=== PATIENT | female | born 1990 | race Caucasian/White ===

== ENCOUNTER 2017-07-06 15:53 | Emergency (ER) | payer MEDICAID, MEDICARE ==
[~2017-07-06] VITALS: Ht 170.2 cm; Wt 109.0 kg
[2017-07-06] MEDS ORDERED: NO HOME MEDICATIONS (16:11)
[2017-07-06 17:30] LABS: CLARITY URINE CLEAR (CLEAR); COLOR URINE YELLOW (YELLOW); GLUCOSE URINE NEGATIVE (NEGATIVE); KETONES URINE NEGATIVE (NEGATIVE); LEUKOCYTE ESTERASE URINE NEGATIVE (NEGATIVE); NITRITE URINE NEGATIVE (NEGATIVE); OCCULT BLOOD URINE NEGATIVE (NEGATIVE); PH URINE 6.5 (4.5-8.0); PROTEIN URINE NEGATIVE (NEGATIVE); SPECIFIC GRAVITY URINE 1.006 (1.005-1.030); UROBILINOGEN URINE 0.2 E.U./dL (0.2-1.0)
[2017-07-06] MEDS ORDERED: ONDANSETRON HCL 4MG/2ML VIAL IV STA (18:06)
[2017-07-06] MEDS ORDERED: SODIUM CHLORIDE 0.9% 1,000 ML IV ONE (18:06)
[2017-07-06] MEDS ORDERED: MORPHINE SULFATE 4 MG/ML CPJ (NOT FOR IM USE) IV STA (18:06)
[2017-07-06] MEDS ORDERED: PANTOPRAZOLE SODIUM 40 MG/VIAL IV STA (18:06)
[2017-07-06 18:34] LABS: BASOPHILS % 0.7 % (0.0-2.0); EOSINOPHILS % 1.4 % (0.0-5.0); HEMATOCRIT. 37.5 % (36.0-48.0); HEMOGLOBIN. 12.6 g/dL (12.0-16.0); LYMPHOCYTES % 32.6 % (20.0-50.0); MEAN CORPUSCULAR HEMOGLOBIN 28.3 pg (28.0-32.0); MEAN CORPUSCULAR VOLUME 84.5 fL (81.0-99.0); MEAN PLATELET VOLUME 7.1 fl (7.4-10.4); MONOCYTES % 8.6 % (2.0-8.0); NEUTROPHILS % 56.7 % (40.0-76.0); PLATELET 296 x1000/uL (130-400); RED BLOOD CELL COUNT 4.44 mill/uL (4.2-5.4); RED CELL DISTRIBUTION WIDTH 14.2 % (11.6-14.6)
[2017-07-06 18:40] LABS: CHLORIDE 108 mEq/L (98-107)
[2017-07-06 18:45] LABS: CARBON DIOXIDE 26 mEq/L (21-32)
[2017-07-06] MEDS ORDERED: KETOROLAC 30MG/ML VIAL IV ONE (19:00)
[2017-07-06] MEDS ORDERED: DICYCLOMINE HCL 10MG/ML 2ML AMP IM STA (20:30)
[2017-07-06 22:34] VITALS: BP 124/74
== END 2017-07-06 22:35 | disposition home or self-care (01) ==
LOC: ER 16:36
DX: K52.9 Noninfective gastroenteritis and colitis, unspecified (principal)
CPT/HCPCS: 36415; 71010; 74176; 76705; 80053; 81003; 81025; 83690; 85025; 96365; 96372; 96375; 99285; C9113; J0500; J1885; J2405; J7030; Z7610; J2270